=== PATIENT | female | born 2005 | race African-American/Black ===

== ENCOUNTER 2024-12-16 21:35 | Emergency (ER) | payer SELFPAY ==
[~2024-12-16] VITALS: Ht 170.2 cm; Wt 66.0 kg
[2024-12-16 21:40] VITALS: O2SAT 100
[2024-12-16 23:10] VITALS: BP 113/82; PULSE 87; RESP 15; TEMP 36.6; O2SAT 100
[2024-12-16] MEDS: ACETAMINOPHEN 325MG TABLET PO ONE (23:18)
== END 2024-12-16 23:14 | disposition home or self-care (01) ==
LOC: ER 21:35
DX: Z04.89 Encounter for examination and observation for other specified reasons (principal); Z62.22 Institutional upbringing
CPT/HCPCS: 99283